=== PATIENT | female | born 1955 | race Caucasian/White ===

== ENCOUNTER → 2017-06-22 | Outpatient (CLI) | payer OTHER ==
[~2017-06-22] MED LIST: ADVAIR 250-501 EACH INH; ALBUTEROL17 GM INH; ALLERGY10 M1 PO; ALPRAZOLAM PO; ASPIRIN ENTERI325 M1 PO; BACLOFEN10 MG PO; BREO ELLIPTA 21 EACH; FLONASE ALLERG9.9 ML; FUROSEMIDE40 MG PO; GABAPENTIN600 MG PO; HYDROCODON-ACE1 EAC5 PO; IPRATROPIU0.2 MG/1 M; LEVOTHYROXINE100 MCG PO; LIPITOR PO; NAPROXEN PO; NORCO 7.5-3251 EACH PO; NORVASC10 MG PO; OMEPRAZOLE20 M1 PO; OXYGEN; POTASSIUM CHLO10 ME1 PO; PRINIVIL20 M1 PO; VESICARE5 MG PO; VITAMIN D250000 UNIT PO; ZYLOPRIM100 MG PO; [UNRECOGNIZED DRUG - OTHER]
--- NOTE | ~2017-06-22 | CO ---
Unit #: [id number] #: [id number] Patient: ELVIA RUBIN [id number] [address] [place], [place] [address] [id number] O MR#: [id number] NAME: ELVIA RUBIN ROOM: Age: 61 Sex: F Admission Date: 06/22/2017 : 1955 Attending Physician: Roge Vásquez M.D. Primary Care Physician: Olegario Murdock M.D. Consultation Date: 06/22/2017 CONSULTATION REPORT REASON FOR CONSULTATION Preoperative medical evaluation prior to right total knee arthroplasty scheduled by Dr. Vásquez for 07/04/2017. HISTORY OF PRESENT ILLNESS The patient is a 61-year-old female, who presents to preprocedural screening for the reason as indicated above. She reports constant pain in the right knee. She uses a cane or walker at home to assist with ambulation if the pain increases. She denies upper chest, upper back, arm, neck, jaw pain, or pressure. Denies dyspnea on exertion, PND, or orthopnea. She has history of mild obstructive sleep apnea and has been given preoperative cardiac clearance by Dr. Carrillo. She has a history of COPD and is on O2 at 2.5 L/minute per nasal cannula at night and p.r.n. She has not been prescribed CPAP. She has intermittent dizziness when sitting on the side of the bed, when she wakes up in the morning which resolved spontaneously. She denies presyncope, syncope, or lightheadedness. She reports intermittent anxiety related palpitations with no associated symptoms. She has no additional complaints at the time of this interview this morning. She has been evaluated by Dr. Vásquez and scheduled for the above-referenced procedure. PAST MEDICAL HISTORY 1. Osteoarthritis, primary right knee. 2. Tobacco use. 3. COPD. 4. Mild ELMER without need for CPAP per medical technical writer. 5. Questionable history of "enlarged heart.". 6. Chronic questionably healed wound lower abdomen. 7. Hypertension. 8. Anxiety. 9. Gastroesophageal reflux disease. 10. Hypothyroidism. 11. Allergic rhinitis. 12. Hepatitis, unknown type as a child. 13. Hyperlipidemia. 14. Degenerative disk disease. 15. Chronic pain established with Dr. Mclain for pain management. 16. Restless legs syndrome. 17. Gout. 18. Obesity, BMI of 34. PAST SURGICAL HISTORY 1. Hysterectomy. 2. Excision of left breast cysts with benign results per patient report. Unit #: [id number] #: [id number] Patient: ELVIA RUBIN 3. Right knee arthroscopy. 4. D and C x3. 5. Tubal ligation. 6. Tonsillectomy. 7. Bladder repair. 8. Sinus surgery. 9. Left ear tube placement. The patient denies a personal and family history of complications to anesthesia. ALLERGIES Denies latex allergy. No known drug allergies. CURRENT MEDICATIONS Omeprazole 20 mg p.o. daily, Lipitor 40 mg p.o. at bedtime, levothyroxine sodium 112 mcg p.o. daily, Flonase allergy relief two sprays each nares daily p.r.n., ipratropium bromide q.4 hours p.r.n. shortness of air, Zyloprim 100 mg p.o. daily, Vitamin D2 50,000 units p.o. weekly on Tuesday, baclofen 10 mg p.o. t.i.d. p.r.n. muscle spasm, Norvasc 10 mg p.o. at bedtime, Prinivil 20 mg p.o. daily, gabapentin 600 mg p.o. q.i.d., naproxen 500 mg p.o. b.i.d., hydrocodone/acetaminophen 10/325 mg tab one p.o. q.i.d. p.r.n. pain., oxygen 2.5 L/minute per nasal cannula at bedtime and p.r.n. shortness of air, Breo Ellipta 200-25 mcg inhaled two puffs daily, Ventolin (albuterol) 2 puffs inhaled q.4h p.r.n., pain cream compound q.i.d. p.r.n. pain. SOCIAL HISTORY Has smoked approximately 4 cigarettes per day for the past 45 years. Denies EtOH or illicit drug use. FAMILY HISTORY Mother; hypertension and hyperlipidemia. Father; hypertension, hyperlipidemia, and cancer. REVIEW OF SYSTEMS The patient reports mild dizziness upon rising from lying to sitting position in the morning, which spontaneously resolved. Intermittent shortness of air, although none at this time for which she uses O2 as dictated above, history of candidal dermatitis below breasts for which she uses nystatin powder without open wounds, lower abdominal fold scar with intermittent clear drainage from bladder repair surgery many years ago. No fever, chills, nausea, vomiting, or diarrhea. No abdominal pain. No urinary frequency, dysuria, hematuria, or foul smelling urine. Bilateral lower extremity dependent edema. Full dentures. A 10-point review of systems is conducted, otherwise negative except as indicated under history of present illness above. PHYSICAL EXAMINATION GENERAL: A 61-year-old obese female, awake, alert, in no acute distress. VITAL SIGNS: Temperature 97.5, heart rate 82, respiratory rate 18, blood pressure 130/85, oxygen saturation 98% on room air. HEENT: Atraumatic and normocephalic. Sclerae anicteric. No discharge from eyes, ears, or nares. LYMPH: No preauricular, postauricular, tonsillar, submental, anterior, or posterior cervical adenopathy. ENDOCRINE: No thyromegaly, thyroid nodules, or tenderness. RESPIRATORY: Rhonchi all sanon bilaterally and inspiration and Unit #: [id number] #: [id number] Patient: ELVIA RUBIN expiration without wheezes. No crackles. CARDIOVASCULAR: S1 and S2. Regular rate and rhythm without murmur or rub. GI: Bowel sounds are positive x4. Soft, nontender, nondistended. EXTREMITIES: No edema, cyanosis, or clubbing. MUSCULOSKELETAL: Strength 5/5 in all extremities bilaterally to flexion and extension. NEUROLOGIC: Alert and oriented x3. Speech clear. Follows directions during examination. DERMATOLOGIC: Light pink areas under both breasts without open wounds or obvious rash. Still Androderm, horizontal apparently healed scar without obvious opening and without discharge from the entire length of the wound. No erythema, induration, or odor. DIAGNOSTIC STUDIES LABORATORY RESULTS: WBC 15.0, hemoglobin 14.1, hematocrit 43.7, platelets 237,000. Sodium 142, potassium 4.1, chloride 103, CO2 30, glucose 86, BUN 10, creatinine 1.1, calcium 10.0, AST 19, ALT 14, alkaline phos 133, bilirubin total 0.7, total protein 7.7, albumin 4.5. PT 10.7, INR 1.0. Urinalysis; leukocyte esterase trace, nitrite negative, blood negative, rbc 0 to 2, wbc's 5 to 10, bacteria 3+, squamous cells moderate. Urine culture and sensitivity pending at this time. Blood type O positive, antibody screen negative. MRSA nasal swab report pending at this time. IMAGING STUDIES: Skinny two-view chest x-ray report pending at this time. CARDIOVASCULAR STUDIES: Sinus rhythm with premature supraventricular complexes. Possible anterior infarct, age undetermined. Confirmed report pending at this time. IMPRESSION The patient is a 61-year-old female, who presents to preprocedural screening for; 1. Preoperative medical evaluation prior to right total knee arthroplasty. The patient's Poon revised cardiac risk index is approximately equal to 0.4%, which is related to cardiac , nonfatal myocardial infarction, and nonfatal cardiac arrest according to no risk factors. This has been discussed in detail with the patient. She wishes to proceed with surgery as scheduled at this time. 2. Tobacco use. We will order nicotine transdermally, postoperatively p.r.n. nicotine withdrawal symptoms. 3. Chronic obstructive pulmonary disease on O2 at night at 2.5 L/minute per nasal cannula p.r.n. 4. Obstructive sleep apnea without requirement for CPAP. The patient has been evaluated by Dr. Carrillo, her medical technical writer given preoperative cardiac clearance. 5. Questionable history of cardiomyopathy. 6. Old scar without visible open wound lower abdomen. 7. Hypertension. Continue current medications. Monitor renal function and blood pressure and adjust medications accordingly postoperatively. 8. Anxiety, stable. 9. Gastroesophageal reflux disease. 10. Hypothyroidism. TSH and free T4 pending at this time. 11. Allergic rhinitis. 12. History of hepatitis as a child. 13. Hyperlipidemia. 14. Degenerative disk disease. 15. Chronic pain established with Dr. Mclain for pain management. The Unit #: [id number] #: [id number] Patient: ELVIA RUBIN patient states that she has spoken with Dr. Mclain and then he will call in a prescription for pain medication for her to use postoperatively. She is going to discuss this with Dr. Vásquez as well. 16. Gout. Continue allopurinol. 17. Obesity, body mass index of 34. 18. History of anxiety related palpitations. 19. Leukocytosis of unknown etiology. Await chest x-ray, urine culture and sensitivity report. We will follow up with the patient based on the results of these diagnostic tests. The patient has no signs or symptoms of obvious infection at this time. I have ordered a repeat WBC with differential in the a.m. of OR. Thank you for allowing us to participate in care of this patient. We will gladly follow her for postop medical management pending order of Dr. Vásquez. Dictated by... Fran Palacios/silvano TD: 06/23/2017 12:29 JOB #: [id number] CONSULTATION REPORT Page 1 of 1 X Sangeetha Sloan [employer] LAMINATING OPERATOR X CONSULTATION REPORT
--- NOTE | ~2017-06-22 | EKG ---
PATIENT: ELVIA RUBIN UNIT #: [id number] Ventricular Rate: 79 BPM Atrial Rate: 79 BPM P-R Interval: 186 ms QRS Duration: 86 ms Q-T Interval: 408 ms QTC Calculation(Bezet): 467 ms P [place]: 15 degrees Calculated R [place]: -28 degrees Calculated T [place]: 45 degrees Diagnosis Line: Sinus rhythm with Premature supraventricular Diagnosis Line: complexes Diagnosis Line: Possible Anterior infarct (cited on or before Diagnosis Line: 11-MAY-2010) Diagnosis Line: Abnormal ECG Diagnosis Line: When compared with ECG of 11-MAY-2010 13:20, Diagnosis Line: Premature supraventricular complexes are now Diagnosis Line: Present Diagnosis Line: Confirmed by TEZ GIRON MD ([id number]) on 06/22/2017 Diagnosis Line: 11:13:03 PM INTERPRETING MD: BREE TIRADO
--- NOTE | ~2017-06-22 | CR63 ---
[facility] A Service of [facility] & [facility] RADIOLOGY TEXT RESULTS PATIENT: ELVIA RUBIN LOCATION: [facility] : 57 UNIT #: [id number] AGE: [address]: Roge Vásquez MD SEX: F ORDER DR: [id number] [facility] [address] [place], [place] [address] [id number] O MR#: [id number] Acc #: [id number] NAME: ELVIA RUBIN : 1955 SEX: F STUDY DATE/TIME: 06/22/2017 9:24 UNIT: [facility] ROOM: STUDY DESCRIPTION: CR Chest 2 View Attending Physician: Roge Vásquez M.D. Referring Physician: Roge Vásquez M.D. Ordering Physician: Roge Vásquez M.D. Primary Care Physician: Olegario Murdock M.D. MEDICAL IMAGING REPORT This report is preliminary unless electronic signature is present EXAM Chest, 06/22/2017 HISTORY 61-year-old woman preop clearance for right total knee arthroplasty. Osteoarthritis right knee. COMPARISON Chest, 09/03/2016 FINDINGS Two-view chest demonstrates mild stable cardiac enlargement. Hilar structures and mediastinal contours are preserved. Bilateral lungs are expanded and clear. Large body habitus noted. IMPRESSION Mild stable cardiac enlargement. No acute chest finding. Dictated by... José Miguel Lu M.D. THIS IS AN ELECTRONICALLY VERIFIED REPORT José Miguel Lu M.D. at 06/22/2017 2:24 PM Carlos A TD: 06/22/2017 14:20 JOB #: [id number] MEDICAL IMAGING REPORT Page 1 of 1 COPY
[2017-06-22 08:40] LABS: URINE APPEARANCE CLOUDY; URINE BILIRUBIN NEG (NEG); URINE BLOOD NEG (NEG); URINE COLOR YELLOW; URINE GLUCOSE NEG (NEG); URINE KETONE NEG (NEG); URINE LEUKOCYTE ESTERASE TRACE (NEG); URINE NITRATE NEG (NEG); URINE PH 5.5 (5-8); URINE PROTEIN NEG (NEG); URINE SPECIFIC GRAVITY 1.008 (1.003-1.035); URINE UROBILINOGEN 0.2 MG/DL (NEG)
[2017-06-22 08:41] LABS: HEMATOCRIT 43.7 % (35.0-45.0); HEMOGLOBIN 14.1 gm/dL (12.0-16.0); MEAN CORPUSCULAR HEMOGLOBIN 29.6 PG (28-34); MEAN CORPUSCULAR HGB CONC 32.2 g/dL (30-36); MEAN PLATELET VOLUME 10.4 FL (6.5-11.5); RED BLOOD COUNT 4.75 X10e (3.90-5.30); RED CELL DISTRIBUTION WIDTH 13.8 % (11.0-15.5)
[2017-06-22 08:44] LABS: CULTURE INDICATED? YES; URBCS1 AUWI 0-2 /[HPF] (0-2); URINE BACTERIA AUWI 3+ (NEGATIVE); URINE SQUAMOUS EPITHELIAL CELL MOD /[HPF]
[2017-06-22 08:48] LABS: URINE SOURCE CLEAN CATCH
[2017-06-22 08:53] LABS: PROTHROMBIN TIME (PATIENT) 10.7 SECONDS (10.0-11.7)
[2017-06-22 09:30] LABS: ALBUMIN SERUM 4.5 g/dL (3.5-5.0); BILIRUBIN,TOTAL 0.7 mg/dL (0.2-2.0); BUN/CREATININE RATIO 9.09; CREATININE SERUM 1.1 mg/dL (0.6-1.4); GLOM FILT RATE Estimated 54.5 mL/min (>60); POTASSIUM 4.1 mmol/L (3.5-5.1); PROTEIN TOTAL SERUM 7.7 g/dL (6.0-8.3)
[2017-06-22 11:29] LABS: THYROID STIMULATING HORMONE 1.11 uIU/ml (0.34-5.60)
[2017-06-22 11:36] LABS: FREE THYROXIN (T4) 1.3 ng/dL (0.58-1.64)
== END | disposition home or self-care (01) ==
LOC: CAMB 08:00
PROVIDERS: Orthopaedic Surgery
DX: Z01.818 Encounter for other preprocedural examination (principal); M17.11 Unilateral primary osteoarthritis, right knee; I51.7 Cardiomegaly
CPT/HCPCS: 36415; 71020; 80053; 81003; 84439; 84443; 85027; 85610; 86850; 86900; 86901; 87070; 87086; 93005

== ENCOUNTER 2017-07-04 07:17 | Inpatient (IN) | payer OTHER ==
[~2017-07-04] VITALS: Ht 152.4 cm; Wt 82.0 kg
--- NOTE | ~2017-07-04 | OR ---
Unit #: [id number] #: [id number] Patient: ELVIA RUBIN [id number] [address] [place], [place] [address] [id number] I MR#: [id number] NAME: ELVIA RUBIN ROOM: 459 Date of Procedure: 07/04/2017 Admission Date: 07/04/2017 Surgeon: Roge Vásquez M.D. : 1955 Attending Physician: Roge Vásquez M.D. Primary Care Physician: [facility] OPERATIVE REPORT PREOPERATIVE DIAGNOSIS Primary localized osteoarthritis of the right knee. POSTOPERATIVE DIAGNOSIS Primary localized osteoarthritis of the right knee. PROCEDURE PERFORMED Right total knee. ASSISTANTS Aneta and Erin. ANESTHESIA Adductor canal block plus general. ESTIMATED BLOOD LOSS 100 mL. DESCRIPTION OF PROCEDURE The patient was brought to the holding room, given 2 g of Kefzol. An adductor canal block was performed. After this was done, the patient then had the general anesthetic administered, the tourniquet positioned and the knee was prepped and draped. Tourniquet was inflated to 250. A straight anterior skin incision was made. The subcutaneous dissected away and a medial arthrotomy performed. Patella was slid to the side. Osteophytes removed from the femur. The intramedullary guide was used and a 6-degree valgus cut was made on the distal femur. The femur was sized at a 5 for the attune knee system. The anterior, posterior cutting block was applied. Rotation checked and the anterior and posterior cuts were made along with the chamfer cuts. We then made the trochlear groove cut. Proximal tibial cut was made using an external guide and the femur was sized at a 5 and the tibia was sized at a 4. Any remaining meniscal fragments were debrided. The posterior capsule and periosteum were injected with ropivacaine. The trial 5 femur was applied and the drill holes were made for lugs on the femoral component. The trial 4 tibia was applied with a 5 mm insert. We found we had to go up to a 7 to give appropriate stability. The patient then had the external alignment guide used. It showed appropriate alignment of the limb. Rotation of the tibia was marked. The patella was grasped with 2 towel clips, measured 24 mm thick, cut smooth at 13 and a 38 patella was the appropriate size. Three drill holes were made. Trial patella applied and it tracked properly. We then removed all the trials, the drill and punch for the tibia. The knee Unit #: [id number] #: [id number] Patient: ELVIA RUBIN was irrigated and dried while the cement was mixed. Then, all 3 components were cemented simultaneously. Once again, it was a size 5 femur, cruciate retaining size 4 tibial base plate and a 38 patella from the C3L3B Digital Knee System. After the cement was hardened, it was judged that the 7 insert was the appropriate thickness, so this was opened and applied to the tray. Tourniquet released. The rest of ropivacaine mixture injected and then the wound was closed after being soaked in Betadine using 0 Ethibond in the arthrotomy, 0 and 2-0 Vicryl in the subcutaneous, and skin was closed with the Dermabond closure system Mariella. porcelain buildup assistant, Ramez Cornell was present throughout the entire case. Dictated by... Patricia Edwards/silvano TD: 07/05/2017 09:18 JOB #: [id number] OPERATIVE REPORT Page 1 of 1 X Roge Vásquez MD X PROCEDURE OPERATIVE NOTE
--- NOTE | ~2017-07-04 | DS ---
Unit #: [id number] #: [id number] Patient: ELVIA RUBIN [id number] [place], [place] [address] [id number] I MR#: [id number] NAME: ELVIA RUBIN ROOM: 45 Age: 61 Sex: F Admission Date: 07/04/2017 : 1955 Discharge Date: 07/06/2017 Attending Physician: Roge Vásquez M.D. Primary Care Physician: [facility]. DISCHARGE SUMMARY REASON FOR ADMISSION Right knee osteoarthritis. PROCEDURES Right total knee arthroplasty. HOSPITAL COURSE The patient was admitted to [facility] with a history of severe osteoarthritis of her right knee. The patient has undergone the above procedure. The patient is in stable condition. Temperature is 98.1, blood pressure 113/65, heart rate 87 and regular, respirations 18. Her incision is healing well. Her neurovascular exam is intact. She has 2+ pulses in her lower extremity. The plan will be to send her home later today if safe per physical therapy. DIAGNOSTIC STUDIES PERTINENT LABS: Hemoglobin is 10.6. MEDICATIONS Per med/rec list. She will be on her regular home medications plus aspirin 325 mg twice a day. FOLLOWUP INSTRUCTIONS The patient will be discharged home under the care of [facility]. The patient will need aspirin 325 mg twice a day. The patient will wear TEDS during the day, off at night. The patient should not drive until seen by Dr. Vásquez in 6 weeks. The patient will begin physical therapy, including active and active-assist range of motion, strengthening, progressive ambulation, beginning with a walker and progress to a cane as tolerated. Dictated by... Ramez Cornell P.A.-C- for Patricia Edwards/santi TD: 07/06/2017 07:43 JOB #: [id number] Unit #: [id number] #: [id number] Patient: ELVIA RUBIN DISCHARGE SUMMARY Page 1 of 1 X X DISCHARGE SUMMARY
[~2017-07-04 07:17] MED LIST changes: -ASPIRIN ENTERI325 M1 PO; -BACLOFEN10 MG PO; -BREO ELLIPTA 21 EACH; -FLONASE ALLERG9.9 ML; -GABAPENTIN600 MG PO; -HYDROCODON-ACE1 EAC5 PO; -IPRATROPIU0.2 MG/1 M; -LEVOTHYROXINE100 MCG PO; -LIPITOR PO; -NAPROXEN PO; -NORCO 7.5-3251 EACH PO; -NORVASC10 MG PO; -OMEPRAZOLE20 M1 PO; -OXYGEN; -PRINIVIL20 M1 PO; -VITAMIN D250000 UNIT PO; -ZYLOPRIM100 MG PO; -[UNRECOGNIZED DRUG - OTHER]
[2017-07-04 08:18] LABS: BASOPHIL# 0.1 X10e3 (0-0.3); BASOPHIL% 0.8 % (0-2.5); DIFF IND NO; EOSINOPHIL# 0.4 X10e3 (0-0.7); EOSINOPHIL% 3.6 % (0.0-7.0); HEMATOCRIT 38.8 % (35.0-45.0); HEMOGLOBIN 12.9 gm/dL (12.0-16.0); LYMPHOCYTE# 3.6 X10e3 (1.0-3.5); LYMPHOCYTE% 29.4 % (17.0-45.0); MEAN CELL VOLUME 91.6 FL (83-96); MEAN CORPUSCULAR HEMOGLOBIN 30.5 PG (28-34); MEAN CORPUSCULAR HGB CONC 33.3 g/dL (30-36); MEAN PLATELET VOLUME 10.2 FL (6.5-11.5); MONOCYTE# 0.7 X10e3 (0-1.0); MONOCYTE% 5.4 % (3.0-12.0); NEUTROPHIL# 7.4 X10e3 (1.5-7.1); NEUTROPHIL% 60.8 % (40-75); PLATELET COUNT 206 X10e3 (140-420); RED BLOOD COUNT 4.23 X10e (3.90-5.30); RED CELL DISTRIBUTION WIDTH 13.7 % (11.0-15.5); WHITE BLOOD COUNT 12.2 X10e3 (4.0-10.5)
[2017-07-04 08:30] LABS: INR 0.9; PROTHROMBIN TIME (PATIENT) 10.3 SECONDS (10.0-11.7)
[2017-07-04] MEDS ORDERED: VITAMIN D250000 UNIT PO (08:44)
[2017-07-04] MEDS ORDERED: BACLOFEN10 MG PO (08:46)
[2017-07-04] MEDS ORDERED: GABAPENTIN600 MG PO (08:48)
[2017-07-04] MEDS ORDERED: NORVASC10 MG PO (08:48)
[2017-07-04] MEDS ORDERED: PRINIVIL20 M1 PO (08:48)
[2017-07-04] MEDS ORDERED: NAPROXEN PO (08:49)
[2017-07-04] MEDS ORDERED: HYDROCODON-ACE1 EAC5 PO (08:50)
[2017-07-04] MEDS ORDERED: OXYGEN (08:50)
[2017-07-04] MEDS ORDERED: BREO ELLIPTA 21 EACH (08:52)
[2017-07-04] MEDS ORDERED: ALBUTEROL17 GM INH (08:52)
[2017-07-04] MEDS ORDERED: [UNRECOGNIZED DRUG - OTHER] (08:55)
[2017-07-04] MEDS ORDERED: LEVOTHYROXINE100 MCG PO (13:31)
[2017-07-04] MEDS ORDERED: LIPITOR PO (13:31)
[2017-07-04] MEDS ORDERED: OMEPRAZOLE20 M1 PO (13:31)
[2017-07-04] MEDS ORDERED: FLONASE ALLERG9.9 ML (13:34)
[2017-07-04] MEDS ORDERED: ZYLOPRIM100 MG PO (13:35)
[2017-07-04] MEDS ORDERED: IPRATROPIU0.2 MG/1 M (13:35)
[2017-07-05 03:37] LABS: BASOPHIL% 0.1 % (0-2.5); HEMATOCRIT 31.6 % (35.0-45.0); LYMPHOCYTE# 1.6 X10e3 (1.0-3.5); LYMPHOCYTE% 9.4 % (17.0-45.0); MEAN CORPUSCULAR HEMOGLOBIN 30.4 PG (28-34); MEAN CORPUSCULAR HGB CONC 33.5 g/dL (30-36); MEAN PLATELET VOLUME 10.5 FL (6.5-11.5); MONOCYTE# 0.8 X10e3 (0-1.0); MONOCYTE% 4.5 % (3.0-12.0); NEUTROPHIL# 14.4 X10e3 (1.5-7.1); PLATELET COUNT 179 X10e3 (140-420); RED BLOOD COUNT 3.47 X10e (3.90-5.30); RED CELL DISTRIBUTION WIDTH 13.7 % (11.0-15.5); WHITE BLOOD COUNT 16.7 X10e3 (4.0-10.5)
[2017-07-05 03:38] LABS: HEMOGLOBIN 10.6 gm/dL (12.0-16.0)
[2017-07-05 03:43] LABS: DIFF IND YES
[2017-07-05 03:54] LABS: BUN/CREATININE RATIO 18.46; CALCIUM SERUM 8.9 mg/dL (8.4-10.2); CREATININE SERUM 1.3 mg/dL (0.6-1.4); GLOM FILT RATE Estimated 44.6 mL/min (>60); MAGNESIUM 1.8 mg/dL (1.6-3.0); POTASSIUM 4.7 mmol/L (3.5-5.1)
[2017-07-05 04:07] LABS: PLATELET ESTIMATE DECREASED (NORMAL)
[2017-07-05 04:08] LABS: POIKILOCYTOSIS SL; SMUDGE CELLS 3 /100; TEAR DROP CELLS PRESENT
[2017-07-06 03:45] LABS: HEMATOCRIT 31.8 % (35.0-45.0); HEMOGLOBIN 10.6 gm/dL (12.0-16.0)
[2017-07-06 04:01] LABS: CALCIUM SERUM 9.3 mg/dL (8.4-10.2); GLOM FILT RATE Estimated 61.2 mL/min (>60); POTASSIUM 4.2 mmol/L (3.5-5.1)
[2017-07-06] MEDS ORDERED: ASPIRIN ENTERI325 M1 PO (08:24)
[2017-07-06] MEDS ORDERED: NORCO 7.5-3251 EACH PO (08:26)
== END 2017-07-06 11:50 | disposition home health service (06) | DRG 470 ==
LOC: CSUR 07:17 → CPACUOF 08:37 → CSUR 09:00 → CPACUOF 09:41 → CSUR 09:41 → C4B 12:33 → CPACUOF 12:33 → C4B 07-06 11:50
PROVIDERS: Nurse Practitioner; Orthopaedic Surgery
PROC: 0SRC0J9 Replacement of Right Knee Joint with Synthetic Substitute, Cemented, Open Approach (ICD-10-PCS; principal; 2017-07-04 09:30)
DX: M17.11 Unilateral primary osteoarthritis, right knee (principal); Z99.81 Dependence on supplemental oxygen; D62 Acute posthemorrhagic anemia; I10 Essential (primary) hypertension; K21.9 Gastro-esophageal reflux disease without esophagitis; E78.5 Hyperlipidemia, unspecified; J44.9 Chronic obstructive pulmonary disease, unspecified; Z90.710 Acquired absence of both cervix and uterus; F17.210 Nicotine dependence, cigarettes, uncomplicated; Z98.51 Tubal ligation status; G47.33 Obstructive sleep apnea (adult) (pediatric); D72.829 Elevated white blood cell count, unspecified; G62.9 Polyneuropathy, unspecified; G25.81 Restless legs syndrome
CPT/HCPCS: 80048; 83735; 85014; 85018; 85025; 85610; 94640; 94664; 94760; 94761; 97110; 97116; 97161; 97165; 97530; 97535; C1713; C1776; G8978-GP; G8979-GP; G8987-GO; G8988-GO; G8989-GO; J0131; J0171; J0690; J0735; J1100; J1885; J2250; J2370; J2405; J2795; J3010